=== PATIENT | female | born 1940 ===

== ENCOUNTER 2019-01-30 05:54 | Day surgery (SDC) | payer OTHER ==
[~2019-01-30 05:54] MED LIST: ELIQUIS2.5 MG PO; FOLIC ACID1 MG PO; LIPITOR20 MG PO; LYRICA200 MG PO; OMEGA-31000 MG PO; [UNRECOGNIZED DRUG - OTHER] PO
== END 2019-01-30 10:00 | disposition home or self-care (01) ==
LOC: AMB-ENDOS 05:54
DX: C18.3 Malignant neoplasm of hepatic flexure (principal)

== ENCOUNTER 2019-02-02 14:12 | Inpatient (IN) | payer OTHER ==
[~2019-02-02] VITALS: Ht 170.2 cm; Wt 81.6 kg
--- NOTE | 2019-02-02 14:54 | NUR ---
SE RECIBE AL PACIENTE ALERTA Y ORIENTADO EN GIOVANNA ELY ESFERAS. PACIENTE REFIERE QUE VIENE POR QUE ESTA [place] POR EL ANO (RY LASSITER MAISHA) , DOLOR EN EL ADBOMEN E INFLAMACION. PACIENTE REFIERE QUE LLEVA ASI DESDE HACE DOS WHITEHEAD.
--- NOTE | 2019-02-02 16:53 | NUR ---
EVALUA PTE. SE ORIENTA A PTE SOBRE TX MEDICO. PTE REFIERE COMPRENDER. SE REALIZAN MUESTRAS DE LABORATORIO BAJO MEDIDAS ASEPTICAS. SE REALIZA EKG.
--- NOTE | 2019-02-02 17:50 | NUR ---
SE LE REALIZA EKG A PTE Y SE PRESENTA A DR. RAO MEDICO EN TURNO EL CUAL REFIERE MAQUINA NO SIRVE Y QUE BUSQUEN ANA LUISA QUE SIRVE.
[2019-02-23] MEDS ORDERED: INTESTINEX680 M1 PO (14:41)
== END 2019-02-23 15:35 | disposition home or self-care (01) | DRG 329 ==
LOC: ER 14:12 → SURH 20:49 → ICU 02-13 17:53 → SURH 02-20 15:55
PROVIDERS: ADMIT Surgery
PROC: BW24ZZZ Computerized Tomography (CT Scan) of Chest and Abdomen (ICD-10-PCS; 2019-02-02)
PROC: BW21ZZZ Computerized Tomography (CT Scan) of Abdomen and Pelvis (ICD-10-PCS; 2019-02-02)
PROC: 07TB4ZZ Resection of Mesenteric Lymphatic, Percutaneous Endoscopic Approach (ICD-10-PCS; 2019-02-03)
PROC: 0DTU4ZZ Resection of Omentum, Percutaneous Endoscopic Approach (ICD-10-PCS; 2019-02-03)
PROC: 0DTK4ZZ Resection of Ascending Colon, Percutaneous Endoscopic Approach (ICD-10-PCS; 2019-02-03)
PROC: 0DTK4ZZ Resection of Ascending Colon, Percutaneous Endoscopic Approach (ICD-10-PCS; principal; 2019-02-03 09:00)
PROC: 02HV33Z Insertion of Infusion Device into Superior Vena Cava, Percutaneous Approach (ICD-10-PCS; 2019-02-05)
PROC: 4A12X4Z Monitoring of Cardiac Electrical Activity, External Approach (ICD-10-PCS; 2019-02-09)
PROC: 3E0F7GC Introduction of Other Therapeutic Substance into Respiratory Tract, Via Natural or Artificial Opening (ICD-10-PCS; 2019-02-09)
DX: D12.2 Benign neoplasm of ascending colon (principal); J18.1 Lobar pneumonia, unspecified organism; J15.7 Pneumonia due to Mycoplasma pneumoniae; K62.5 Hemorrhage of anus and rectum; I48.4 Atypical atrial flutter; B20 Human immunodeficiency virus [HIV] disease; K91.89 Other postprocedural complications and disorders of digestive system; K56.7 Ileus, unspecified; J98.11 Atelectasis; J81.1 Chronic pulmonary edema; J84.89 Other specified interstitial pulmonary diseases; R09.02 Hypoxemia; D12.3 Benign neoplasm of transverse colon; R59.0 Localized enlarged lymph nodes; E78.00 Pure hypercholesterolemia, unspecified; I48.0 Paroxysmal atrial fibrillation; R73.01 Impaired fasting glucose; K80.80 Other cholelithiasis without obstruction; K74.69 Other cirrhosis of liver; D69.59 Other secondary thrombocytopenia; E66.8 Other obesity; Z88.0 Allergy status to penicillin; Z88.6 Allergy status to analgesic agent; D20.1 Benign neoplasm of soft tissue of peritoneum; Z79.01 Long term (current) use of anticoagulants; Z99.81 Dependence on supplemental oxygen

== ENCOUNTER 2019-02-24 15:18 | Emergency (ER) | payer OTHER ==
[~2019-02-24] VITALS: Ht 170.2 cm; Wt 81.6 kg
[~2019-02-24 15:18] MED LIST changes: +INTESTINEX680 M1 PO
== END 2019-02-24 22:26 | disposition home or self-care (01) ==
LOC: ER 15:18
DX: R06.02 Shortness of breath (principal)

== ENCOUNTER 2019-02-25 19:34 | Inpatient (IN) | payer OTHER ==
[~2019-02-25] VITALS: Ht 170.2 cm; Wt 80.7 kg
[2019-03-03] MEDS ORDERED: LASIX20 MG PO (14:10)
[2019-03-03] MEDS ORDERED: ODEFSEY TABLET1 EACH PO (14:10)
[2019-03-03] MEDS ORDERED: Plaquenil PO (14:10)
[2019-03-03] MEDS ORDERED: LIPITOR20 MG PO (14:10)
[2019-03-03] MEDS ORDERED: ELIQUIS2.5 MG PO (14:10)
[2019-03-03] MEDS ORDERED: DILTIAZEM HCL30 MG PO (14:10)
[2019-03-03] MEDS ORDERED: MICRO-K 1010 MEQ PO (14:10)
[2019-03-03] MEDS ORDERED: FOLIC ACID1 MG PO (14:10)
[2019-03-03] MEDS ORDERED: LYRICA200 MG PO (14:10)
== END 2019-03-03 18:09 | DRG 977 ==
LOC: ER 19:34 → SURH 02-26 11:51 → ICU 02-26 11:51 → SURH 03-01 01:49
PROVIDERS: ADMIT Internal Medicine Geriatric Medicine
PROC: 4A033R1 Measurement of Arterial Saturation, Peripheral, Percutaneous Approach (ICD-10-PCS; principal; 2019-02-26)
PROC: B246ZZZ Ultrasonography of Right and Left Heart (ICD-10-PCS; 2019-02-26)
PROC: 02HV33Z Insertion of Infusion Device into Superior Vena Cava, Percutaneous Approach (ICD-10-PCS; 2019-02-27)
PROC: 3E0F7GC Introduction of Other Therapeutic Substance into Respiratory Tract, Via Natural or Artificial Opening (ICD-10-PCS; 2019-02-27)
PROC: 4A12X4Z Monitoring of Cardiac Electrical Activity, External Approach (ICD-10-PCS; 2019-03-01)
DX: B20 Human immunodeficiency virus [HIV] disease (principal); J81.0 Acute pulmonary edema; I50.23 Acute on chronic systolic (congestive) heart failure; J98.11 Atelectasis; C18.3 Malignant neoplasm of hepatic flexure; I48.92 Unspecified atrial flutter; G72.81 Critical illness myopathy; I11.0 Hypertensive heart disease with heart failure; R09.02 Hypoxemia; D69.49 Other primary thrombocytopenia; J84.10 Pulmonary fibrosis, unspecified; I48.91 Unspecified atrial fibrillation

== ENCOUNTER 2019-08-16 10:31 | Inpatient (IN) | payer OTHER ==
[~2019-08-16] VITALS: Ht 160 cm; Wt 90.7 kg
[~2019-08-16 10:31] MED LIST changes: +DILTIAZEM HCL30 MG PO; +LASIX20 MG PO; +MICRO-K 1010 MEQ PO; +ODEFSEY TABLET1 EACH PO; +Plaquenil PO
--- NOTE | 2019-08-16 10:37 | NUR ---
SERECIBE PTE ALERTAY ORIENTADA X3 ,EN AMBULANCIA LA CUAL REFIERE TENER DOLOR ABDOMINAL ,DIARREAS, VOMITOS,ESPTE DEL FUE OPERADA DEL COLON EN .
--- NOTE | 2019-08-16 10:56 | NUR ---
SE RECIBE PTE FEMENINA DE79 YRS ALERTA CONCIENTE Y TRANQUILA.ES EVALUADA POR EL TANIA QUIEN ORDENA TRATAMENTO LA CUAL SE EJECUTA POR CHRISTAL JOVEL RN SE MANTIENE BAJO OBSERVACION POR CAMBIOS.
--- NOTE | 2019-08-16 15:06 | NUR ---
PTE ALERTA Y ORIENTADA X 3 ESFERAS EN COMPANIA DE FAMILIAR,EN CAMA CON BARANDAS ELEVADAS,AREA DE VENOPUNCION PATENTE Y ELENA DE EDEMA CON FLUIDOS DE MANTENIMIENTO BAJANDO SIN DIFICULTAD.PTE PENDIENTE A EVALUACION DE DR FUCHS.
[2019-08-26] MEDS ORDERED: LIPITOR20 MG PO (13:52)
[2019-08-26] MEDS ORDERED: LOTRISONE CREAM45 GM TOP (13:52)
[2019-08-26] MEDS ORDERED: PRE PROTEIN1 EACH PO (13:52)
[2019-08-26] MEDS ORDERED: LASIX20 MG PO (13:52)
[2019-08-26] MEDS ORDERED: ISOSORBIDE MONO30 MG PO (13:52)
[2019-08-26] MEDS ORDERED: FOLIC ACID1 MG PO (13:52)
[2019-08-26] MEDS ORDERED: DILTIAZEM HCL30 MG PO (13:52)
[2019-08-26] MEDS ORDERED: Neurin-Sl Tablet Sl SL (13:52)
[2019-08-26] MEDS ORDERED: ELIQUIS2.5 MG PO (13:52)
[2019-08-26] MEDS ORDERED: LYRICA200 MG PO (13:52)
[2019-08-26] MEDS ORDERED: Plaquenil PO (13:52)
== END 2019-08-26 16:18 | disposition home or self-care (01) | DRG 977 ==
LOC: ER 10:31 → SEC-K 19:51 → MEDJ 19:51
PROVIDERS: ADMIT Internal Medicine Geriatric Medicine
PROC: BW21Y0Z Computerized Tomography (CT Scan) of Abdomen and Pelvis using Other Contrast, Unenhanced and Enhanced (ICD-10-PCS; principal; 2019-08-16)
PROC: CF1C1ZZ Planar Nuclear Medicine Imaging of Hepatobiliary System, All using Technetium 99m (Tc-99m) (ICD-10-PCS; 2019-08-16)
PROC: 8E0ZXY6 Isolation (ICD-10-PCS; 2019-08-17)
PROC: 30233R1 Transfusion of Nonautologous Platelets into Peripheral Vein, Percutaneous Approach (ICD-10-PCS; 2019-08-18)
PROC: 02HV33Z Insertion of Infusion Device into Superior Vena Cava, Percutaneous Approach (ICD-10-PCS; 2019-08-18)
PROC: 0F9430Z Drainage of Gallbladder with Drainage Device, Percutaneous Approach (ICD-10-PCS; 2019-08-19)
PROC: 0DBL8ZX Excision of Transverse Colon, Via Natural or Artificial Opening Endoscopic, Diagnostic (ICD-10-PCS; 2019-08-25)
PROC: 0DBE8ZX Excision of Large Intestine, Via Natural or Artificial Opening Endoscopic, Diagnostic (ICD-10-PCS; 2019-08-25)
PROC: 3E0H7KZ Introduction of Other Diagnostic Substance into Lower GI, Via Natural or Artificial Opening (ICD-10-PCS; 2019-08-25)
DX: B20 Human immunodeficiency virus [HIV] disease (principal); K57.31 Diverticulosis of large intestine without perforation or abscess with bleeding; J15.7 Pneumonia due to Mycoplasma pneumoniae; K80.00 Calculus of gallbladder with acute cholecystitis without obstruction; C18.3 Malignant neoplasm of hepatic flexure; G72.81 Critical illness myopathy; J81.1 Chronic pulmonary edema; J98.11 Atelectasis; I48.92 Unspecified atrial flutter; K91.89 Other postprocedural complications and disorders of digestive system; K56.7 Ileus, unspecified; K74.69 Other cirrhosis of liver; R16.1 Splenomegaly, not elsewhere classified; I48.0 Paroxysmal atrial fibrillation; D69.49 Other primary thrombocytopenia; E86.0 Dehydration; D63.8 Anemia in other chronic diseases classified elsewhere; I11.0 Hypertensive heart disease with heart failure; I50.9 Heart failure, unspecified; E78.00 Pure hypercholesterolemia, unspecified; M06.89 Other specified rheumatoid arthritis, multiple sites; K52.89 Other specified noninfective gastroenteritis and colitis; B96.29 Other Escherichia coli [E. coli] as the cause of diseases classified elsewhere; K62.89 Other specified diseases of anus and rectum

== ENCOUNTER → 2019-10-16 | Outpatient (CLI) | payer OTHER ==
[~2019-10-16] MED LIST changes: +ISOSORBIDE MONO30 MG PO; +LOTRISONE CREAM45 GM TOP; +Neurin-Sl Tablet Sl SL; +PRE PROTEIN1 EACH PO
== END | disposition home or self-care (01) ==
LOC: RX STUDY 09:59
DX: D12.6 Benign neoplasm of colon, unspecified (principal); D37.4 Neoplasm of uncertain behavior of colon; K81.0 Acute cholecystitis; R59.0 Localized enlarged lymph nodes; B20 Human immunodeficiency virus [HIV] disease

== ENCOUNTER 2020-04-12 07:23 | Outpatient (CLI) | payer OTHER | END 2020-04-12 07:25 | disposition home or self-care (01) | LOC: TOM 07:23 | DX: R10.11 Right upper quadrant pain (principal) | CPT/HCPCS: 74177; Q9965 ==